=== PATIENT | male | born 1940 | race African-American/Black ===

== ENCOUNTER 2017-06-05 07:47 | Day surgery (SDC) | payer OTHER ==
[~2017-06-05] VITALS: Ht 180.3 cm; Wt 81.5 kg
[2017-06-05] MEDS ORDERED: IOHEXOL 350 MG/ML 50 ML BTL (for Cath Lab) OTHER ONE (07:48)
[2017-06-05 08:00] VITALS: BP 147/88; PULSE 66; RESP 17; O2SAT 96
[2017-06-05] MEDS ORDERED: NS 1000P @30 MLS/HR (KVO) IV SCH (08:00)
[2017-06-05] MEDS ORDERED: PANT40TA3 PO (08:36)
[2017-06-05] MEDS ORDERED: MECL-62 PO (08:36)
[2017-06-05] MEDS ORDERED: SOTA80TA PO (08:36)
[2017-06-05] MEDS ORDERED: LISI20TA PO (08:36)
[2017-06-05] MEDS ORDERED: ASPI1CHW4 CHEW (08:36)
[2017-06-05] MEDS ORDERED: HYDR-3583 PO (08:36)
[2017-06-05 08:39] LABS: AUTOMATED NEUTROPHIL # 1.9 TH/MM3 (1.8-7.7); BASOPHIL % 0.9 % (0.0-2.0); EOSINOPHIL # 0.1 TH/MM3 (0-0.4); EOSINOPHIL % 3.2 % (0.0-4.0); HEMATOCRIT 36.8 % (39.0-51.0); HEMOGLOBIN 12.4 GM/DL (13.0-17.0); LYMPH % 30.4 % (9.0-44.0); LYMPHOCYTE # 1.2 TH/MM3 (1.0-4.8); MEAN CELL VOLUME 91.1 FL (80.0-100.0); MEAN CORPUSCULAR HEMOGLOBIN 30.8 PG (27.0-34.0); MEAN CORPUSCULAR HGB CONC 33.8 % (32.0-36.0); MEAN PLATELET VOLUME 8.9 FL (7.0-11.0); MONO % 19.1 % (0.0-8.0); MONOCYTE # 0.8 TH/MM3 (0-0.9); NEUT % 46.4 % (16.0-70.0); PLATELET COUNT 186 TH/MM3 (150-450); RED BLOOD COUNT 4.04 MIL/MM3 (4.50-5.90); RED CELL DISTRIBUTION WIDTH 13.8 % (11.6-17.2)
[2017-06-05 08:50] LABS: INTERNATIONAL NORMALIZED RATIO 1.2 RATIO
[2017-06-05 09:23] LABS: BICARBONATE 27.6 MEQ/L (21.0-32.0); CREATININE 1.04 MG/DL (0.60-1.30)
[2017-06-05] MEDS ORDERED: HEPARIN SODIUM - IV 10,000 UNITS/10 ML VIAL ONE (10:22)
[2017-06-05] MEDS ORDERED: HEPARIN-NS/PF FLUSH BAG 2,000 ML IV FLUSH ONE (10:22)
[2017-06-05] MEDS ORDERED: VERAPAMIL HCL 5 MG/2 ML VIAL ONE (10:22)
[2017-06-05] MEDS ORDERED: NITROGLYCERIN INJ 5 ML ONE (10:22)
--- NOTE | 2017-06-05 11:25 | CATHPROC ---
[employer] HIS Report Study Information Study Number Admission Scheduled Start Study Start [id number] Jun 05 2017 7:47AM 06/05/2017 Jun 05 2017 10:07AM [facility] Cardiac Catheterization Admit Source Facility Department Other [facility] - Sample Selector Physician and Clinical Staff Initial Jassi Escobar Promotions Assistant Sales Marketing Arelis Webber,YASEMIN Promotions Assistant Sales Marketing Oscar Johnson,YASEMIN Other Rin Duran,RT(R) (BS) Other cathlab, cathlab Recorder Irish Mccall,RT(R) TECH2 Scrub Tommy Beth,RT(R) Procedures Performed Procedure Location (Site) Vessel Name Coronary Angiograms LCA Left Coronary Coronary Angiograms RCA Right Coronary Wire insertion Radial (right) Radial Art. Equipment Time Truckload Owner Operator Description Size Mfg Part Number Used/Scraped TRANSDUCER, TRUWAVE [id number] 10:09 COLÓN SIMON * Used W/STOCKCOCK *[id number] *[id number] *[id number] 10:09 [facility] PACK, CCL CUSTOM * Used *[id number] 10:09 [facility] SUPPORT, ARTERIAL ADULT 21097 *[id number] Used BAND, RADIAL COMPRESSION TR [id number] 11:02 [employer] MEDICAL 24CM Used SHORT 24 *[id number] 10:09 [employer] WIRE, EXCHANGE 260CM 3MMJ 260CM Used *[id number] 10:09 [employer]IFOLD, 4 PORT * Used *[id number] 10:09 [employer] OMNIPAQUE, 350 MG, 150ML 150ML [id number] Used [id number] 10:09 [employer],WARM AIR CCL * Used *[id number] SHEATH, FR6 TRANSRADIAL RM*[id number] 10:09 [employer] FR 6 Used SLENDER 10CM *[id number] WIRE, ANGLE GLIDE STIFF .035 [id number] 10:51 [employer]/HERMAN 260CM Used 260CM *[id number] History: Current Medications Medication Dosage/Unit Route Frequency Last Date/Time Taken ASA LISINOPRIL History: Allergies Allergy Reaction No Known Allergies Sjfuzds-Edy-Mga Reductase Inhibitor naproxen History: Risk Factors Family History of Hypertension Dyslipidemia Previous NM Previous Heart Failure Premature CAD Yes Yes Yes No No Prior Valve Prior PCI Prior CABG Surgery No No No Cerebrovascular Peripheral Artery Chronic Lung On Dialysis Diabetes Disease Disease Disease No No No No Yes History: Symptoms/Diagnosis Selection Items SOB History: Stress Tests Stress or Imaging Studies Performed Yes Standard Exercise Stress Test No Stress Echo No Stress Test SPECT Stress Test SPECT Result Stress Test SPECT Ischemia Risk/Extent Yes Positive Intermediate Stress Test CMR No Cardiac CTA Coronary Calcium Score No No History: Arrhythmias Selection Items Supraventricular History: Other Disease Selection Items HTN History: Other Current Smoker Method Quit Packs a Day Years Used Pack Years No Cigarettes 40 Years Ago 1 2 2 Labs Hgb (g/dl) Hct (%) RBC (MIL/MM3) WBC (l/cumm) Platelets (thousands) 11.60-17.00 35.00-51.00 4.00-5.90 4.00-11.00 150.00-450.00 12.4 36.8 4 4 186 Glucose (mg/dl) BUN (mg/dl) Creatinine (mg/dl) BUN:Creatinine (1:x) 74.00-106.00 7.00-18.00 0.50-1.30 10.00-20.00 67 11 1.0 11 Na (meq/l) K (meq/l) Cl (meq/l) CO2 (mmol/L) Ca (mg/dl) 136.00-145.00 3.50-5.10 98.00-107.00 21.00-32.00 8.50-10.10 142 3.9 106 27.6 9 PT (sec) PTT (sec) INR (PTT:PT) 9.80-11.60 24.30-30.10 0.90-1.10 12 25 1.2 CPK-MB (ng/ML) 0.50-3.60 Not Drawn Medication Medication Total Dose (Bolus/Oral) Medication Total Dosage/Unit 1% XYLOCAINE 20 mL FENTANYL 25 mcg RADIAL COCKTAIL 5 mL (Bolus) Medications (Bolus/Oral) Medication Time Given Dosage/Unit Administered By Reason 1% XYLOCAINE 06/05/2017 10:44:07 AM 20 mL Jassi Ng For pain 20 mL 1% XYLOCAINE given in lab by Jassi Ng in Right Wrist via Subcutaneous. Ordered by Jassi Ang Reason: For pain. FENTANYL 06/05/2017 10:44:12 AM 25 mcg Oscar Johnson 25 mcg FENTANYL given in lab by Oscar Johnson RN in Left Antecubital via Peripheral IV. Ordered by Jassi Ang Ntg 200mcg Verapamil 2.5mg Heparin RADIAL COCKTAIL 06/05/2017 10:46:52 AM 5 mL (Bolus) Jassi Ng 3000U 5 mL (Bolus) RADIAL COCKTAIL given in lab by Jassi Ng via Radial. Using [Solution Name]. O rdered by Jassi Ng Reason: Ntg 200mcg Verapamil 2.5mg Heparin 3000U. Medication (Drip) Medication Time Given Dosage/Unit Concentration/Unit Diluent (ml) Solution IV Solutions 06/05/2017 10:24:30 AM 0 mL (IV) 500 NaCl .9 IV Solutions given pre op in Left Antecubital via Peripheral IV. Pump/Drip Flow = 20 ml/hr using NaCl .9. Ordered by Jasis Ng Initial Case Assessment Cardiovascular HR Rhythm NIBP Chest Pain 58 sr 157/91 0 Edema Present Skin color Skin None Normal Warm Dry Circulatory - Right Pulses Dorsalis Pedis Femoral Radial 1 2 2 Scale (0,1,2,3,4,d) Circulatory - Left Pulses Dorsalis Pedis Femoral Radial 1 Scale (0,1,2,3,4,d) Neurological State Oriented to time-place- Alert Moves all extremities person Respiration - General Respiration Rate SpO2 (%) (B/min) 18 100 Final Case Assessment Cardiovascular HR Rhythm NIBP Chest Pain 60 sr 136/77 0 Edema Present Skin color Skin None Normal Warm Dry Circulatory - Right Pulses Dorsalis Pedis Femoral Radial 1 2 2 Scale (0,1,2,3,4,d) Scale (0,1,2,3,4,d) Neurological State Oriented to time-place- Alert Moves all extremities person Respiration - General Respiration Rate SpO2 (%) (B/min) 17 98 Chronological Log Time Study Chronological Log 10:18:38 Patient arrived via Bed. 10:18:39 Patient Name, D.O.B, / Armband Verified By R.N. 10:23:55 Consent signed by the physician and the patient and verified by the Sample Selector staff. 10:23:56 Presedation assessment performed by Sample Selector RN. 10:23:58 Allens test performed on the left radial and ulnar artery. 10:24:03 Allens test performed on the right radial and ulnar artery. negative test result. 10:24:16 Reference ECG taken 10:24:18 Patient has been NPO for More than 6Hrs. 10:24:18 Skin Breakdown-none per patient 10::27 Dorothy Prominences Protected 10:24:29 A # 20 IV was noted in the Antecubital (left). Grade = 0 IV Solutions given pre op in Left Antecubital via Peripheral IV. Pump/Drip Flow = 20 ml/hr usin g NaCl .9. Ordered by 10:24:30 Jassi Ng 10:24:32 History and physical on the chart or being dictated. Vitals capture started with the following parameters, Patient=Adult, Interval=5 min, Initial Pr mqvvff=869 mmHg, 10:25:00 Deflation Rate=5 mmHg, Cuff placed on Unknown 10:25:41 HR=59 bpm, MNKZ=334/91 mmhg, YhE8=775.0 %, Resp=19 B/min, Pain=0, Alicia=10, [place]=2 Assessment: Initial Case, HR=58 BPM, Rhythm=sr, EHKL=156/91 mmhg, Chest Pain=0, Edema=None, Col or=Normal, Skin = Warm, Dry Right Pulses: Simon Ped=1, Femoral=2, Radial=2 10:27:54 Left Pulses: Simon Ped=1 Neurological: State=Alert, Ox3, [place] Respiration: Resp=18 B/min, SiM9=498 % 10:30:44 HR=57 bpm, XMCW=095/89 mmhg, RvK3=419.0 %, Resp=20 B/min, Pain=0, Alicia=10, [place]=2 10:34:27 Pressure channel 1 zeroed. 10:34:49 Right Radial and groin(s) prepped with 2% chlorhexidine, and draped after a 3 min. waiting time. 10:35:08 MD paged 10:36:14 HR=64 bpm, VPJS=897/89 mmhg, VxN5=166.0 %, Resp=9 B/min, Pain=0, Alicia=10, [place]=2 10:40:42 HR=59 bpm, GTEL=526/86 mmhg, SpO2=99.0 %, Resp=18 B/min, Pain=0, Alicia=10, [place]=2 10:40:42 MD arrived. Time Out. Correct patient, correct procedure, correct physician, power injector not loaded with contrast with surgical 10:43:48 team present. Time Out Concurred by MD and individual staff in procedure. 10:44:01 Case Start 20 mL 1% XYLOCAINE given in lab by Jassi Ng in Right Wrist via Subcutaneous. Ordered by Hernandez, 10:44:07 Jassi Villagomez. Reason: For pain. 25 mcg FENTANYL given in lab by Oscar Johnson RN in Left Antecubital via Peripheral IV. Ordered by Jassi Ng 10:44:12 G. 10:45:39 HR=64 bpm, CHNT=495/91 mmhg, SpO2=99.0 %, Resp=13 B/min, Pain=0, Alicia=10, [place]=2 10:46:23 Access site was Radial Artery. A SHEATH, FR6 TRANSRADIAL SLENDER 10CM FR 6 was advanced into the Radial (right) using the Perc utaneous 10:46:48 technique. 5 mL (Bolus) RADIAL COCKTAIL given in lab by Jassi Ng via Radial. Using [Solution Na me]. Ordered by 10:46:52 Jassi Ng. Reason: Ntg 200mcg Verapamil 2.5mg Heparin 3000U. 10:50:42 HR=64 bpm, RYWB=647/78 mmhg, SpO2=95.0 %, Resp=13 B/min, Pain=0, Alicia=10, [place]=2 10:51:46 A WIRE, ANGLE GLIDE STIFF .035 260CM 260CM was inserted via Radial (right). A JR 4.0 INFINITI CATHETER FR 5 was advanced over a wire. OMNIPAQUE, 350 MG, 150ML 150ML was us ed for 10:51:54 injections. Recorded Pressure: Ao, HR=60, Condition=Condition 1 10:52:50 (Aorta) Ao 124/71/93 10:53:22 The RCA was injected and visualized at various angles. OMNIPAQUE, 350 MG, 150ML 150ML used . 10:54:02 A WIRE, ANGLE GLIDE STIFF .035 260CM 260CM was inserted via Radial (right). Recorded Pressure: LV, HR=61, Condition=Condition 1 10:55:03 (Left Ventricle) LV 145/4/15 Recorded Pressure: LV, Ao, HR=68, Condition=Condition 1 10:55:16 (Left Ventricle) LV 138/1/19, (Aorta) Ao 137/68/104 10:55:50 Catheter was removed 10:56:22 HR=60 bpm, RSGJ=933/87 mmhg, SpO2=97.0 %, Resp=18 B/min, Pain=0, Alicia=10, [place]=2 A JL 3.5 INFINITI CATHETER FR 5 was advanced over a wire. OMNIPAQUE, 350 MG, 150ML 150ML was us ed for 10:56:52 injections. 10:57:59 The LCA was injected and visualized at various angles. OMNIPAQUE, 350 MG, 150ML 150ML used . 11:00:42 HR=61 bpm, XMMR=485/77 mmhg, SpO2=98.0 %, Resp=16 B/min, Pain=0, Alicia=10, [place]=2 11:02:01 Catheter was removed 11:02:30 Catheter(s) removed without difficulty Radial Compression Device Used. 10 mLs of air placed in BAND, RADIAL COMPRESSION TR SHORT 24 24 CM. Affected 11:02:34 hand 99 % O2 saturation. Assessment: Final Case, HR=60 BPM, Rhythm=sr, VUDJ=752/77 mmhg, Chest Pain=0, Edema=None, Color =Normal, Skin = Warm, Dry 11:02:52 Right Pulses: Simon Ped=1, Femoral=2, Radial=2 Neurological: State=Alert, Ox3, [place] Respiration: Resp=17 B/min, SpO2=98 % 11:03:24 No case complications noted. 11:03:24 Cine recording checked. 11:03:25 Bedside Report will be given. 11:03:36 Case End 11:05:41 HR=60 bpm, NGSW=332/80 mmhg, SpO2=99.0 %, Resp=18 B/min, Pain=0, Alicia=10, [place]=2 11:06:17 DOCU called. Spoke to Mya HAZEL. 11:10:11 Vitals capture stopped. 11:10:15 Patient moved to stretcher End Study - Contrast Media Used In Study Contrast Total Opened (mL) Total Used (mL) Total Wasted (mL) Omnipaque 40 40 0 End Study - Maximum Contrast Load Max Contrast Load (mL) 407.5 End Study - Radiation Exposure Fluoro Time (minutes) 4.9 End Study - Patient Disposition Complications Transferred To No Telemetry Bed
[2017-06-05] MEDS ORDERED: MISC INFORMATION XX ONE (11:30)
--- NOTE | 2017-06-05 11:56 | MA ---
cc: Jassi Ng DO DATE: 06/05/2017 PROCEDURE: Left heart catheterization, coronary angiogram. PREPROCEDURE DIAGNOSIS: Shortness of breath/chest pain, abnormal stress test. POSTPROCEDURE DIAGNOSIS: Mild coronary artery disease. MEDICATIONS: Fentanyl 25 mcg, nitro 200 mcg, verapamil 2.5 mg, heparin 3300 units. CONTRAST USED: 40 mL. FLUOROSCOPY: 4.9 minutes. ANESTHESIA: Moderate sedation 0 minutes. ESTIMATED BLOOD LOSS: 10 mL. PROCEDURAL SUMMARY: Ismael Lopes is a pleasant 76-year-old male who sees my partner, Dr. Galvez in the office and underwent stress testing due to chest pain and shortness of breath. He was found to have inferior and inferolateral ischemia and so he was recommended cardiac catheterization. Risks, benefits and alternatives were explained to him and he consented as such. He was brought to the lab and prepped in the usual sterile fashion. The right radial artery was accessed using a modified Seldinger technique and placement of a 5/6 Russian slender sheath. This was easily aspirated and flushed. A JR4 was advanced to the right subclavian and due to tortuosity throughout the aortic arch, a stiff Glidewire was used to manage getting the JR4 to the aortic root. JR4 was used to perform selective angiography of the right coronary artery system. JR4 was then advanced into the left ventricle for measurement of left ventricular pressure. This was pulled back across the aortic valve showing no significant gradient of aortic stenosis. JR4 was changed out for a JL3.5 which was used to perform selective angiography of the left coronary artery system. JL3.5 was removed over a J wire. Radial band was placed over the arteriotomy site for hemostasis. The patient left the cath lab radiological technologist cardiovascularly stable. FINDINGS: Left main: Large vessel with no significant disease. It trifurcates into an LAD, ramus and circumflex. LAD: Overall a large vessel with tortuosity throughout. It does have mild disease throughout the mid to distal portion of 30%. It appears to give off 2 major diagonals which overall have tortuosity, but no significant disease. Ramus: Normal size vessel with significant tortuosity throughout with no significant disease. Left circumflex: Normal size vessel with mild luminal irregularity throughout the proximal portion. It gives off 2 obtuse marginals that overall have tortuosity, but no significant disease. RCA: A large aneurysmal vessel with overall tortuosity. No disease noted throughout the system. It supplies the PDA and 2 PLVs. LVEDP 19. IMPRESSIONS: 1. Abnormal stress test. 2. Mild coronary artery disease. 3. Tortuosity of the coronaries most likely due to prolonged hypertension. RECOMMENDATIONS: 1. Mr. Lopes appears to have no significant disease at this time and he will be recommended continued medical therapy. 2. We will plan to discharge him home today. He has been instructed not to lift more than 10 pounds for 3 days. 3. He will followup with Dr. Galvez as previously scheduled. Thank you for allowing me to see Ismael Lopes. If there are any questions, please do no hesitate to call. Jassi Ng DO VGP/DL , 11:16 AM , 11:53 AM
--- NOTE | 2017-06-05 20:08 | EKG ---
Date Performed: 06/05/2017 Time Performed: 08:37:42 PTAGE: 76 years EKG: Sinus bradycardia with sinus arrhythmia with borderline 1st degree A-V block. Leftward axis Borderline ECG PREVIOUS TRACING : 04/13/2003 09.32 Since the previous tracing, no significant change noted DOCTOR: Aldair Sullivan Interpretating Date/Time 06/05/2017 20:07:58
== END 2017-06-05 14:40 | disposition home or self-care (01) ==
LOC: HDOC 07:47 → HDIC 07:49 → HDOC 14:40
PROVIDERS: ATTEND Nuclear Medicine Nuclear Cardiology
DX: I25.10 Atherosclerotic heart disease of native coronary artery without angina pectoris (principal); I10 Essential (primary) hypertension; R06.02 Shortness of breath; Z01.818 Encounter for other preprocedural examination; Z01.810 Encounter for preprocedural cardiovascular examination
CPT/HCPCS: 80048; 85025; 85610; 85730; 93005; 93458; C1769; J1644; J3010; J7030; Q9967